=== PATIENT | female | born 2000 | race Caucasian/White ===

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

== ENCOUNTER 2024-04-24 15:31 | Emergency (ER) | payer OTHER ==
[2024-04-24 16:57] VITALS: RESP 18; TEMP 98.3
--- NOTE | 2024-04-24 17:17 | ERPHSYRPT ---
- History of Present Illness Time Seen by Provider: 04/24/24 15:48 Source: patient Exam Limitations: no limitations Patient Subjective Stated Complaint: 8 weeks -cramping Triage Nursing Assessment: Patient ambulated back to ED and transferred self to bed. Patient A+O X 3. Patient's skin pink, warm and dry. Patient is 8 weeks and is having pelvic cramping. Patient denies vaginal bleeding. Patient complains of N/V. Physician History: 23-year-old 1 para 0 at almost 8 weeks gestation presented in the ER with complaint of left-sided pelvic cramping since last night with worsening today, moderate intensity, no significant aggravating or relieving factors. Denies associated vaginal bleeding or discharge. Has nausea vomiting related to which is not any worse than usual. Patient reports decreased oral intake lately and feels dehydrated. No urinary complaints. No fever or chills reported. Allergies/Adverse Reactions: Penicillins Allergy (Severe, Verified 04/24/24 16:45) Home Medications: No122/Iron/Folic Acid [ Multi Tablet] 1 tab PO DAILY 04/24/24 [History] Hx Tetanus, Diphtheria Vaccination/Date Given: Yes Hx Influenza Vaccination/Date Given: Yes Hx Pneumococcal Vaccination/Date Given: No Travel Risk - International Travel Have you traveled outside of the country in past 3 weeks: No - Emerging Infectious Disease Are you exhibiting symptoms associated with any current EIDs: No - Review of Systems Constitutional: No Symptoms Ears, Nose, & Throat: No Symptoms Respiratory: No Symptoms Cardiac: No Symptoms Abdominal/Gastrointestinal: Abdominal Pain Genitourinary Symptoms: Musculoskeletal: No Symptoms Skin: No Symptoms Neurological: No Symptoms Psychological: No Symptoms Endocrine: No Symptoms - Past Medical History Pertinent Past Medical History: Yes Neurological History: Seizures Respiratory History: Asthma Other Medical History: SENIOR HUMAN RESOURCES REPRESENTATIVE shunt. hydrocephalus - Past Surgical History Past Surgical History: Yes Other Surgical History: t-tubes, SENIOR HUMAN RESOURCES REPRESENTATIVE shunt placement - Female History Hx Last Menstrual Period: February 05, 2024 Hx Now: Yes Gestational Age: 8 weeks - Social History Smoking Status: Never smoker Exposure to second hand smoke: No Drug Use: none Patient Lives Alone: No - Social Determinants of Health Will the patient participate in the screening: Yes Do you worry about a steady place to live?: No Do you have any problems with any of the following?: No known problems In the past 12 months,have you had to go without utilities?: No Transportation Issues: No Has anyone in your support network made you feel unsafe?: No Have you or anyone in your house had to go without enough: No - Nursing Vital Signs Nursing Vital Signs: Initial Vital Signs Temperature 98.3 F 04/24/24 16:48 Pulse Rate 89 04/24/24 16:48 Respiratory Rate 18 04/24/24 16:48 Blood Pressure 138/85 04/24/24 16:48 O2 Sat by Pulse Oximetry 98 04/24/24 16:48 Pain Scale Pain Intensity 0 - Physical Exam General Appearance: no apparent distress, alert Eye Exam: PERRL/EOMI Neck Exam: normal inspection, full range of motion Respiratory Exam: normal breath sounds, lungs clear Cardiovascular Exam: regular rate/rhythm, normal heart sounds Back Exam: normal inspection, normal range of motion Extremity Exam: normal inspection, normal range of motion Neurologic Exam: alert, oriented x 3, cooperative Skin Exam: normal color SpO2 Interpretation: normal SpO2: 98 O2 Delivery: Room Air Ordered Tests: Medication Summary Discontinued Medications Generic Name Dose Route Start Last Admin Trade Name Gopiq PRN Reason Stop Dose Admin Sodium Chloride 1,000 mls @ 999 mls/hr 04/24/24 17:07 04/24/24 19:20 Sodium Chloride 0.9% 1000 Ml IV 04/24/24 18:07 Infused .Q1H1M STA Infusion Sodium Chloride Confirm 04/24/24 17:48 Sodium Chloride 0.9% 1000 Ml Administered 04/24/24 17:49 Dose 1,000 mls @ ud .ROUTE .STK-MED ONE Ondansetron HCl 4 mg 04/24/24 17:07 04/24/24 17:54 Ondansetron Hcl 4 Mg/2 Ml Vial IV 04/24/24 17:08 4 mg STAT ONE Administration Ondansetron HCl Confirm 04/24/24 17:48 Ondansetron Hcl 4 Mg/2 Ml Vial Administered 04/24/24 17:49 Dose 4 mg .ROUTE .STK-MED ONE Lab/Rad Data: Laboratory Result Diagrams 04/24/24 17:45 04/24/24 17:45 Laboratory Results 04/24/24 04/24/24 04/24/24 Range/Units 17:45 17:45 17:45 WBC (3.98-10.04) x10^3/uL RBC (3.93-5.22) x10^6/uL Hgb (11.2-15.7) g/dL Hct (34.1-44.9) % MCV (79.4-94.8) fL MCH (25.6-32.2) pg MCHC (32.2-35.5) g/dL RDW (11.7-14.4) % Plt Count (182-369) x10^3/uL MPV (9.4-12.3) fL Segmented Neutrophils (34.0-71.1) % Lymphocytes (Manual) (19.3-51.7) % Monocytes (Manual) (4.7-12.5) % Platelet Estimate (NORMAL) RBC Morphology Sodium 140 (135-145) mmol/L Potassium 3.9 (3.5-5.1) mmol/L Chloride 104 (98-107) mmol/L Carbon Dioxide 24 (22-30) mmol/L Anion Gap 15.8 H (5-15) MEQ/L BUN 7 (7-17) mg/dL Creatinine 0.59 (0.52-1.04) mg/dL Estimated GFR 131.4 ML/MIN Glucose 82 (74-106) mg/dL Calcium 9.7 (8.4-10.2) mg/dL Total Bilirubin 0.70 (0.2-1.3) mg/dL AST 47 H (14-36) U/L ALT 55 H (0-35) U/L Alkaline Phosphatase 64 (38-126) U/L Serum Total Protein 7.5 (6.3-8.2) g/dL Albumin 4.6 (3.5-5.0) g/dL Beta HCG, Quant 243749 mIU/ml Urine Color (Yellow) Urine Appearance (Clear) Urine pH (4.6-8.0) Ur Specific Barco (1.005-1.030) Urine Protein (Negative) Urine Glucose (UA) (Negative) mg/dL Urine Ketones (Negative) Urine Blood (Negative) Urine Nitrite (Negative) Urine Bilirubin (Negative) Urine Urobilinogen (0.2) mg/dL Ur Leukocyte Esterase (Negative) U Hyaline Cast (Auto) (0-2) /LPF Urine Microscopic RBC (0-5) /HPF Urine Microscopic WBC (0-5) /HPF Ur Epithelial Cells (None Seen) /HPF Urine Bacteria (None Seen) /HPF Urine Yeast (Budding) (None Seen) /HPF Urine Culture Reflexed (NO) ABO Group O Rh Factor POSITIVE Antibody Screen NEGATIVE (NEGATIVE) 04/24/24 04/24/24 Range/Units 17:45 17:07 WBC 12.3 H (3.98-10.04) x10^3/uL RBC 4.91 (3.93-5.22) x10^6/uL Hgb 13.7 (11.2-15.7) g/dL Hct 41.7 (34.1-44.9) % MCV 84.9 (79.4-94.8) fL MCH 27.9 (25.6-32.2) pg MCHC 32.9 (32.2-35.5) g/dL RDW 13.1 (11.7-14.4) % Plt Count 355 (182-369) x10^3/uL MPV 9.9 (9.4-12.3) fL Segmented Neutrophils 77 H (34.0-71.1) % Lymphocytes (Manual) 21 (19.3-51.7) % Monocytes (Manual) 2 L (4.7-12.5) % Platelet Estimate NORMAL (NORMAL) RBC Morphology NORMAL Sodium (135-145) mmol/L Potassium (3.5-5.1) mmol/L Chloride (98-107) mmol/L Carbon Dioxide (22-30) mmol/L Anion Gap (5-15) MEQ/L BUN (7-17) mg/dL Creatinine (0.52-1.04) mg/dL Estimated GFR ML/MIN Glucose (74-106) mg/dL Calcium (8.4-10.2) mg/dL Total Bilirubin (0.2-1.3) mg/dL AST (14-36) U/L ALT (0-35) U/L Alkaline Phosphatase (38-126) U/L Serum Total Protein (6.3-8.2) g/dL Albumin (3.5-5.0) g/dL Beta HCG, Quant mIU/ml Urine Color Dark Yellow A (Yellow) Urine Appearance Turbid A (Clear) Urine pH 5.5 (4.6-8.0) Ur Specific Barco 1.025 (1.005-1.030) Urine Protein 30 (Negative) Urine Glucose (UA) Negative (Negative) mg/dL Urine Ketones 80 A (Negative) Urine Blood Large A (Negative) Urine Nitrite Negative (Negative) Urine Bilirubin Negative (Negative) Urine Urobilinogen 1.0 A (0.2) mg/dL Ur Leukocyte Esterase Small A (Negative) U Hyaline Cast (Auto) None Seen (0-2) /LPF Urine Microscopic RBC 51-100 A (0-5) /HPF Urine Microscopic WBC 3-5 (0-5) /HPF Ur Epithelial Cells Few (None Seen) /HPF Urine Bacteria Rare A (None Seen) /HPF Urine Yeast (Budding) Rare A (None Seen) /HPF Urine Culture Reflexed YES (NO) ABO Group Rh Factor Antibody Screen (NEGATIVE) - Progress Progress: improved, re-examined Air Movement: good Progress Note: 04/24/24 18:50 23-year-old 1 para 0 at almost 8 weeks gestation is evaluated in the ER for pelvic cramping especially on the left side with excessive nausea and vomiting. She is given fluids and symptomatic treatment, on reevaluation she is feeling much improved. No more vomiting while in the ER. Workup showed normal white count, chemistries consistent with some element of dehydration. No definite UTI. hCG level in 160 Ks, obtained ultrasound which showed single IUP with heart tone in 170s with some element of subchorionic hemorrhage. I have discussed with Dr. Solano, recommended pelvic rest, increase hydration and Zofran and follow-up outpatient. Patient does have Zofran prescription at home which she is advised to continue. Discussed signs symptoms of worsening needing return to ER which she seems understanding. Stable for discharge. Blood Culture(s) Obtained: No Antibiotics given: No Discussed with : Juanjo Counseled pt/family regarding: lab results, diagnosis, need for follow-up, rad results Medical Desision Making - Independent Historian Additional History obtained from: Mother - Discussion of managment Care discussed with:: specialist Reviewed:: Test results Agreed on:: Treatment plan, need for follow-up Will see patient: In office - Diagnostic Testing Diagnostic test were ordered, analyzed, and reviewed by me: Yes Radiological Interpretation: Reviewed by me - Risk of complications The pt has a mod risk of morbidity or mortality based on: Need for prescription drug management - Departure Departure Disposition: Home Clinical Impression: Subchorionic hematoma in first trimester, Dehydration during , Hyperemesis affecting , antepartum Condition: Stable Critical Care Time: No Referrals: DOCTOR,NO FAMILY [Primary Care Provider] - Follow up/PCP as directed MICHAELA SOLANO DO [ACTIVE STAFF] - Follow up/PCP as directed Instructions: Bleeding in Early (DC) Additional Instructions: Drink plenty of fluids to keep up with hydration. Take Tylenol as needed. Pelvic rest/no sexual activity for 2 weeks at least or until cleared by your primary OB. Follow-up with OB for reevaluation. Return to ER for intractable pain, vaginal bleeding, inability to hold much down etc.
[2024-04-24 17:23] LABS: Appearance Turbid (Clear); Bilirubin Negative (Negative); Blood Large (Negative); Glucose, Urine Negative (Negative); Ketones 80 (Negative); Leukocyte Esterase Small (Negative); Nitrite Negative (Negative); Ph 5.5 (4.6-8.0); Protein,Urine Dip 30 (Negative); Specific Gravity 1.025 (1.005-1.030)
[2024-04-24] MEDS ORDERED: Zofran 4 MG/2 ML VIAL ONE (17:48)
[2024-04-24] MEDS ORDERED: Sodium Chloride 0.9% 1000 ML 1,000 ML ONE (17:48)
[2024-04-24 17:51] LABS: Hematocrit 41.7 % (34.1-44.9); Hemoglobin 13.7 g/dL (11.2-15.7); Mean Cell Volume 84.9 fL (79.4-94.8); Mean Corpuscular Hemoglobin 27.9 pg (25.6-32.2); Mean Corpuscular Hgb Concent. 32.9 g/dL (32.2-35.5); Mean Platelet Volume 9.9 fL (9.4-12.3); Platelet Count 355 x10^3/uL (182-369); Red Blood Count 4.91 x10^6/uL (3.93-5.22); Red Cell Distribution Width 13.1 % (11.7-14.4); White Blood Count 12.3 x10^3/uL (3.98-10.04)
[2024-04-24] MEDS: Sodium Chloride 0.9% 1000 ML 1,000 ML IV STA (17:52)
[2024-04-24] MEDS: Zofran 4 MG/2 ML VIAL IV ONE (17:54)
[2024-04-24 18:04] LABS: ALBUMIN 4.6 g/dL (3.5-5.0); ANION GAP 15.8 MEQ/L (5-15); BILIRUBIN,TOTAL 0.7 mg/dL (0.2-1.3); Calcium 9.7 mg/dL (8.4-10.2); Creatinine 1 0.59 mg/dL (0.52-1.04); EST GLOMERULAR FILTRATION RATE 131.4 ML/MIN; Potassium 3.9 mmol/L (3.5-5.1); Total Protein 7.5 g/dL (6.3-8.2)
[2024-04-24 18:05] LABS: Bacteria Rare /HPF (None Seen); Budding Yeast Rare /HPF (None Seen); Epithelial Cells Few /HPF (None Seen); Hyaline Casts None Seen /LPF (0-2); RBC 51-100 /HPF (0-5)
--- NOTE | 2024-04-24 18:17 | XRAY ---
Indication: First trimester cramping. Two-dimensional early transvaginal OB ultrasound performed. Comparison: None Single intrauterine gestational sac with single pole. Mean crown-rump length is 1.20 cm corresponding to 7 weeks 3 days. heart rate 176 BPM. 1.9 x 0.5 x 1.9 cm subchorionic hemorrhage. Left and right ovaries are sonographically unremarkable. No suspicious adnexal mass or free fluid. Impression: Single viable intrauterine measuring 7 weeks 3 days. Expected date confinement is December 08, 2024. Small subchorionic hemorrhage.
[2024-04-24 18:55] LABS: ABO TYPING O; Antibody Screen NEGATIVE (NEGATIVE); RH TYPING POSITIVE
[2024-04-24 19:07] VITALS: BP 101/63; PULSE 66
[2024-04-24 21:51] LABS: Lymphocytes 21 % (19.3-51.7); Monocyte 2 % (4.7-12.5); Neutrophils 77 % (34.0-71.1); Platelet Estimate NORMAL (NORMAL); Total Cells Counted 100
[2024-04-25 21:03] VITALS: O2SAT 98
== END 2024-04-24 19:23 | disposition home or self-care (01) ==
LOC: ED 15:31
DX: O46.8X1 Other antepartum hemorrhage, first trimester (principal); R10.32 Left lower quadrant pain; Z3A.08 8 weeks gestation of pregnancy; R11.2 Nausea with vomiting, unspecified; E86.0 Dehydration
CPT/HCPCS: 36415; 76801; 80053; 81001; 84702; 85025; 86850; 86900; 86901; 87086; 96374; 99284; J2405

== ENCOUNTER 2024-05-01 15:46 | Emergency (ER) | payer OTHER ==
[2024-05-01 16:20] VITALS: TEMP 97.7
--- NOTE | 2024-05-01 17:11 | ERPHSYRPT ---
- History of Present Illness Time Seen by Provider: 05/01/24 16:21 Source: patient Exam Limitations: no limitations Patient Subjective Stated Complaint: pt sent over from drs office today due to vomiting,dr bendeict wants pt to have a 2 l of LR. pt states she is able to hold ice chips down Triage Nursing Assessment: pt alert, walked in eating ice chips, resp easy, skin w/d/p. Physician History: 23-year-old female 1 para 0 at almost 8 weeks 4 days gestation presented in the ER with hyperemesis gravidarum. Patient had regular appointment with his primary OB and had ultrasound done which showed improvement in subchorionic hemorrhage. Patient has no vaginal bleeding discharge or cramping. Patient cannot hold much down despite taking Zofran ODT. Per patient she is going to get Zofran pump soon. Patient is sent in here by [employer] for 2 L LR. Allergies/Adverse Reactions: Penicillins Allergy (Severe, Verified 05/01/24 16:13) Home Medications: No122/Iron/Folic Acid [ Multi Tablet] 1 tab PO DAILY 04/24/24 [History] Hx Tetanus, Diphtheria Vaccination/Date Given: No Hx Influenza Vaccination/Date Given: No Hx Pneumococcal Vaccination/Date Given: No Immunizations Up to Date: Yes Travel Risk - International Travel Have you traveled outside of the country in past 3 weeks: No - Emerging Infectious Disease Are you exhibiting symptoms associated with any current EIDs: No - Review of Systems Constitutional: Fatigue Eyes: No Symptoms Ears, Nose, & Throat: No Symptoms Respiratory: No Symptoms Cardiac: No Symptoms Abdominal/Gastrointestinal: No Symptoms Genitourinary Symptoms: Musculoskeletal: No Symptoms Skin: No Symptoms Neurological: No Symptoms Endocrine: No Symptoms Hematologic/Lymphatic: No Symptoms - Past Medical History Pertinent Past Medical History: Yes Neurological History: Seizures Respiratory History: Asthma Other Medical History: SIGNS CLEANER shunt. hydrocephalus - Past Surgical History Past Surgical History: Yes Other Surgical History: t-tubes, SIGNS CLEANER shunt placement - Female History Hx Last Menstrual Period: jan Hx Now: Yes Gestational Age: 6 and 5 - Social History Smoking Status: Never smoker Exposure to second hand smoke: No Drug Use: none Patient Lives Alone: No - Social Determinants of Health Will the patient participate in the screening: Yes Do you worry about a steady place to live?: No Do you have any problems with any of the following?: No known problems In the past 12 months,have you had to go without utilities?: No Transportation Issues: No Has anyone in your support network made you feel unsafe?: No Have you or anyone in your house had to go without enough: No - Nursing Vital Signs Nursing Vital Signs: Initial Vital Signs Temperature 97.7 F 05/01/24 16:19 Pulse Rate 78 05/01/24 16:19 Respiratory Rate 18 05/01/24 16:19 Blood Pressure 126/80 05/01/24 16:19 O2 Sat by Pulse Oximetry 98 05/01/24 16:19 Pain Scale Pain Intensity 0 - Physical Exam General Appearance: no apparent distress, alert Eye Exam: PERRL/EOMI Ears, Nose, Throat Exam: normal ENT inspection Neck Exam: normal inspection, full range of motion Respiratory Exam: normal breath sounds, lungs clear Cardiovascular Exam: regular rate/rhythm, normal heart sounds Gastrointestinal/Abdomen Exam: soft, normal bowel sounds, No tenderness Back Exam: normal inspection, normal range of motion Extremity Exam: normal inspection, normal range of motion Neurologic Exam: alert, oriented x 3, cooperative Skin Exam: normal color SpO2 Interpretation: normal SpO2: 98 O2 Delivery: Room Air Ordered Tests: Medication Summary Discontinued Medications Generic Name Dose Route Start Last Admin Trade Name Freq PRN Reason Stop Dose Admin Lactated Ringer's 1,000 mls @ 999 mls/hr 05/01/24 16:35 05/01/24 18:59 Lactated Ringers IV 05/01/24 17:35 Infused .Q1H1M ONE Infusion Lactated Ringer's 1,000 mls @ 999 mls/hr 05/01/24 16:35 05/01/24 20:11 Lactated Ringers IV 05/01/24 17:35 Infused .Q1H1M ONE Infusion Lactated Ringer's Confirm 05/01/24 17:40 Lactated Ringers Administered 05/01/24 17:41 Dose 2,000 mls @ ud IV .STK-MED ONE Ondansetron HCl 4 mg 05/01/24 16:35 05/01/24 17:42 Ondansetron Hcl 4 Mg/2 Ml Vial IV 05/01/24 16:36 4 mg STAT ONE Administration Ondansetron HCl Confirm 05/01/24 17:40 Ondansetron Hcl 4 Mg/2 Ml Vial Administered 05/01/24 17:41 Dose 4 mg .ROUTE .STK-MED ONE Lab/Rad Data: Laboratory Result Diagrams 05/01/24 17:20 Laboratory Results 05/01/24 Range/Units 17:20 Sodium 135 (135-145) mmol/L Potassium 3.8 (3.5-5.1) mmol/L Chloride 105 (98-107) mmol/L Carbon Dioxide 19 L (22-30) mmol/L Anion Gap 14.5 (5-15) MEQ/L BUN 7 (7-17) mg/dL Creatinine 0.58 (0.52-1.04) mg/dL Estimated GFR 132.0 ML/MIN Glucose 79 (74-106) mg/dL Calcium 10.0 (8.4-10.2) mg/dL Total Bilirubin 0.70 (0.2-1.3) mg/dL AST 43 H (14-36) U/L ALT 41 H (0-35) U/L Alkaline Phosphatase 66 (38-126) U/L Serum Total Protein 7.5 (6.3-8.2) g/dL Albumin 4.6 (3.5-5.0) g/dL - Progress Progress: improved Progress Note: 05/01/24 18:59 23-year-old 1 para 0 at 8-1/2 weeks gestation is evaluated in the ER for hyperemesis gravidarum with dehydration. She is given with an Zofran, on reevaluation she is feeling better. Chemistries showed mild dehydration. Patient has ultrasound done earlier today at OBs office with no obvious concerning finding per patient. She is given 2 L fluid and feeling better. Chemistries are fairly unremarkable. She is being discharged with instructions to follow-up with primary OB and return to ER for any worsening which she seems understanding. Stable for discharge. Counseled pt/family regarding: lab results, diagnosis, need for follow-up Medical Desision Making - Independent Historian Additional History obtained from: Mother - Diagnostic Testing Diagnostic test were ordered, analyzed, and reviewed by me: Yes - Departure Departure Disposition: Home Clinical Impression: Dehydration during , Hyperemesis affecting , antepartum Condition: Stable Critical Care Time: No Referrals: MICHAELA BENEDICT DO [Primary Care Provider] - Follow up/PCP as directed (For reevaluation appointment) Instructions: Hyperemesis Gravidarum (DC) Additional Instructions: Take Zofran as needed. Drink plenty of fluids. Follow-up with primary OB for reevaluation. Return to ER for any worsening.
[2024-05-01] MEDS ORDERED: Zofran 4 MG/2 ML VIAL ONE (17:40)
[2024-05-01] MEDS ORDERED: Lactated Ringers 2,000 ML IV ONE (17:40)
[2024-05-01 17:42] LABS: ALBUMIN 4.6 g/dL (3.5-5.0); ANION GAP 14.5 MEQ/L (5-15); BILIRUBIN,TOTAL 0.7 mg/dL (0.2-1.3); Creatinine 1 0.58 mg/dL (0.52-1.04); Potassium 3.8 mmol/L (3.5-5.1); Total Protein 7.5 g/dL (6.3-8.2)
[2024-05-01] MEDS: Lactated Ringers 1,000 ML IV ONE ×2 (17:42→19:08)
[2024-05-01] MEDS: Zofran 4 MG/2 ML VIAL IV ONE (17:42)
[2024-05-01 20:17] VITALS: BP 116/70; PULSE 85; RESP 17
[2024-05-02 22:17] VITALS: O2SAT 98
== END 2024-05-01 20:17 | disposition home or self-care (01) ==
LOC: ED 15:46
DX: O21.9 Vomiting of pregnancy, unspecified (principal); Z3A.08 8 weeks gestation of pregnancy; E86.0 Dehydration
CPT/HCPCS: 36415; 80053; 96360; 96374; 99284; J2405